=== PATIENT | female | born 1950 | race Caucasian/White ===

== ENCOUNTER → 2024-01-24 07:31 | Outpatient (REF) | payer MEDICARE, OTHER, SELFPAY | LOC: EMG 07:31 | PROVIDERS: ATTENDING PHYSICIAN Orthopaedic Surgery; FAMILY PHYSICIAN Family Medicine | DX: R20.0 Anesthesia of skin (principal); G56.01 Carpal tunnel syndrome, right upper limb | CPT/HCPCS: 95886; 95909 ==

== ENCOUNTER → 2024-02-19 13:39 | Outpatient (REF) | payer MEDICARE, OTHER, SELFPAY | LOC: RCS 13:39 | PROVIDERS: ATTENDING PHYSICIAN Internal Medicine Cardiovascular Disease; FAMILY PHYSICIAN Family Medicine | DX: R06.02 Shortness of breath (principal) | CPT/HCPCS: 93306 ==

== ENCOUNTER → 2024-03-14 12:41 | Outpatient (REF) | payer MEDICARE, OTHER, SELFPAY | LOC: WDC 12:41 | PROVIDERS: ATTENDING PHYSICIAN Surgery; FAMILY PHYSICIAN Nurse Practitioner Family | DX: Z12.31 Encounter for screening mammogram for malignant neoplasm of breast (principal) | CPT/HCPCS: 77063; 77067 ==

== ENCOUNTER → 2024-10-30 07:56 | Outpatient (REF) | payer MEDICARE, OTHER, SELFPAY | LOC: RAD 07:56 | PROVIDERS: ATTENDING PHYSICIAN Physician Assistant Medical; FAMILY PHYSICIAN Nurse Practitioner Family; REFERRING PHYSICIAN Surgery Vascular Surgery | DX: I73.9 Peripheral vascular disease, unspecified (principal) | CPT/HCPCS: 93922; 93925 ==

== ENCOUNTER → 2025-02-24 16:36 | Outpatient (REF) | payer MEDICARE, OTHER, SELFPAY | LOC: MRI 16:36 | PROVIDERS: ATTENDING PHYSICIAN Obstetrics & Gynecology Gynecologic Oncology; FAMILY PHYSICIAN Family Medicine | DX: C54.1 Malignant neoplasm of endometrium (principal); C78.02 Secondary malignant neoplasm of left lung; R91.1 Solitary pulmonary nodule; N93.9 Abnormal uterine and vaginal bleeding, unspecified; E83.10 Disorder of iron metabolism, unspecified; D72.829 Elevated white blood cell count, unspecified; N28.89 Other specified disorders of kidney and ureter | CPT/HCPCS: 74183; A9575 ==

== ENCOUNTER 2025-03-17 08:59 | Outpatient (REF) | payer MEDICARE, OTHER, SELFPAY ==
[2025-03-17] VITALS (12 sets, daily range): BP systolic 100–169; BP diastolic 59–95
[2025-03-17 09:31] LABS: Hematocrit 35.4 % (37.0-47.0); Hemoglobin 11.3 g/dL (12.0-16.0); Mean Corp Hgb Conc. 31.9 g/dL (33.0-37.0); Mean Corpuscular Volume 81.6 fL (81.0-99.0); Nucleated Red Blood Cells % 0 %; Platelet Count 224 10^3/uL (130-400); Red Cell Dist. Width 14.7 % (11.5-14.5)
[2025-03-17 09:46] LABS: Blood Urea Nitrogen 19 mg/dl (7-17); Calcium 9.8 mg/dl (8.4-10.2); Carbon Dioxide 30 mmol/L (22-30); Chloride 103 mmol/L (98-107); Glucose 117 mg/dl (70-99); Potassium 4.4 mmol/L (3.5-5.1); Sodium 140 mmol/L (135-145); eGFR > 60.00
[2025-03-17 09:52] LABS: INR 1.00; PT 13.5 Sec (11.4-14.6)
[2025-03-17] MEDS: APRESOLINE 10 MG IV (10:31)
== END 2025-03-17 16:44 | disposition home or self-care (01) ==
LOC: RADI 08:59
PROVIDERS: ATTENDING PHYSICIAN Urology; FAMILY PHYSICIAN Family Medicine
DX: D30.02 Benign neoplasm of left kidney (principal); D68.8 Other specified coagulation defects; Z85.42 Personal history of malignant neoplasm of other parts of uterus
CPT/HCPCS: 36415; 50200; 76705; 77012; 80048; 85025; 85610; 88305; 88333; 88334; 99152; 99153

== ENCOUNTER → 2025-04-16 14:15 | Outpatient (REF) | payer MEDICARE, OTHER, SELFPAY | LOC: WDC 14:15 | PROVIDERS: ATTENDING PHYSICIAN Nurse Practitioner Adult Health; FAMILY PHYSICIAN Family Medicine | DX: Z12.31 Encounter for screening mammogram for malignant neoplasm of breast (principal); C54.1 Malignant neoplasm of endometrium; C78.02 Secondary malignant neoplasm of left lung; R91.1 Solitary pulmonary nodule; N93.9 Abnormal uterine and vaginal bleeding, unspecified; E83.10 Disorder of iron metabolism, unspecified; D72.829 Elevated white blood cell count, unspecified; N28.89 Other specified disorders of kidney and ureter | CPT/HCPCS: 77063; 77067 ==